=== PATIENT | male | born 1995 | race Caucasian/White ===

== ENCOUNTER 2017-08-13 19:40 | Emergency (ER) | payer MEDICAID ==
[~2017-08-13] VITALS: Ht 188 cm; Wt 54.0 kg
[~2017-08-13 19:40] MED LIST: IBUP-1984 PO
[2017-08-13] MEDS ORDERED: LORazepam 1 MG tablet PO ONE (22:15)
[2017-08-13] MEDS ORDERED: LORA1TAB PO (22:19)
[2017-08-13 22:26] VITALS: BP 112/65
== END 2017-08-13 22:29 | disposition home or self-care (01) ==
LOC: ER 19:40
DX: F41.0 Panic disorder [episodic paroxysmal anxiety] (principal); J06.9 Acute upper respiratory infection, unspecified
CPT/HCPCS: 99284